=== PATIENT | male | born 1950 | race Caucasian/White ===

== ENCOUNTER 2023-04-18 11:42 | Observation (INO) ==
[~2023-04-18 11:42] MED LIST: Buffered Lidocaine 1% SYRIN 1 ml INTRADERM ONE; Lactated Ringers 1000 ml BAG 1,000 ML IV SCH; Naloxone 0.4 mg VIAL 0.4 mg/ml 1 ml VIAL IV PRN; Ondansetron 4 mg VIAL 2 MG/ML 2 ml VIAL IV PRN; fentaNYL 100 mcg/2 ml 50 MCG/ML VIAL IV PRN; oxyCODONE/Acetamin 5/325 mg TAB PO PRN
[2023-04-18] MEDS ORDERED: ceFAZolin 2 GM PREMIX 2 GM/50 ML BAG ONE (12:09)
[2023-04-18] MEDS ORDERED: Buffered Lidocaine 1% SYRIN 1 ml ONE (12:09)
[2023-04-18 12:36] LABS: Rapid COVID-19 Molecular Undetected (Undetected)
[2023-04-18] MEDS ORDERED: Midazolam 2 mg/2 ml VIAL 1 mg/ml 2 ml VIAL (2 mg) ONE ×2 (12:50→19:19)
[2023-04-18] MEDS ORDERED: Lidocaine 2% PF 5 ML VIAL ONE (12:50)
[2023-04-18] MEDS ORDERED: fentaNYL 100 mcg/2 ml 50 MCG/ML VIAL ONE ×2 (12:50→19:17)
[2023-04-18] MEDS ORDERED: Ondansetron 4 mg VIAL 2 MG/ML 2 ml VIAL ONE (12:51)
[2023-04-18] MEDS ORDERED: Morphine 2 MG/ML SYRINGE IV PRN (16:26)
[2023-04-18] MEDS ORDERED: Magnesium Hydroxide LIQ 30 ML UDC PO PRN (16:26)
[2023-04-18] MEDS ORDERED: Ondansetron ODT 4 mg TAB 4 MG TAB PO PRN (16:26)
[2023-04-18] MEDS ORDERED: Lactulose 30 ml UDC PO PRN (16:26)
[2023-04-18] MEDS ORDERED: Ondansetron 4 mg VIAL 2 MG/ML 2 ml VIAL IV PRN (16:26)
[2023-04-18] MEDS ORDERED: Lactated Ringers 1000 ml BAG 1,000 ML IV SCH (17:00)
[2023-04-18] MEDS ORDERED: Acetaminophen IV 1 GM/100ML 1,000 MG/100 ML BAG IV ONE (17:18)
[2023-04-18] MEDS ORDERED: Dexamethasone IV 4 MG/ML VIAL 1 ml VIAL ONE (18:01)
[2023-04-18] MEDS ORDERED: Propofol 10 MG/ML 20 ML BTL ONE ×2 (18:01→18:46)
[2023-04-18] MEDS ORDERED: Glycopyrrolate IV 0.2 MG/ML 1 ML VIAL ONE (18:01)
[2023-04-18] MEDS ORDERED: oxyCODONE/Acetamin 5/325 mg TAB ONE (19:50)
[2023-04-18] MEDS: Magnesium Hydroxide LIQ 30 ML UDC PO SCH (21:54)
[2023-04-18] MEDS: Polyethylene Glycol 3350 17 GM PACKET PO SCH (23:30)
[2023-04-18 23:35] LABS: ABS Basophils 0.1 10^3/uL (0.0-0.1); ABS Lymphocytes 0.5 10^3/uL (1.0-4.8); ABS Monocytes 0.3 10^3/uL (0.0-1.1); ABS Neutrophils 12.6 10^3/uL (1.5-7.6); ABS Nucleated RBC 0.01 10^3/ul; Hematocrit 40.4 % (38-53); Hemoglobin 14.1 g/dL (13.2-16.3); Lymphocyte % 3.7 %; Mean Corpuscular Hemoglobin 33.8 pg (27-33); Mean Corpuscular Hgb Conc 34.9 g/dL (31-36); Mean Corpuscular Volume 96.9 fL (80-97); Nucleated Red Blood Cells % 0.1 /100 WBC (0.0-0.4); Platelet Count 196 10^3/uL (150-450); Red Blood Count 4.17 10^6/uL (4.06-5.63); Red Cell Distribution Width 12.8 % (12-17); White Blood Count 13.4 10^3/uL (3.6-10.2)
[2023-04-19] MEDS: ceFAZolin 1 GM ADVAN 1 GM in NS 0.9% 50 ML 50 ML IVPB SCH ×3 (00:54→15:47)
[2023-04-19] MEDS ORDERED: Lactulose 30 ml UDC PO PRN (03:35)
[2023-04-19 06:03] LABS: Hematocrit 35.9 % (38-53); Hemoglobin 12.6 g/dL (13.2-16.3); Platelet Count 178 10^3/uL (150-450)
[2023-04-19 06:20] LABS: Calcium 9.1 mg/dL (8.6-10.3); Creatinine, Serum 0.71 mg/dL (0.67-1.17); eGFR CKD-EPI 98.7 (>60)
[2023-04-19] MEDS: Magnesium Hydroxide LIQ 30 ML UDC PO SCH (08:33)
[2023-04-19] MEDS: Polyethylene Glycol 3350 17 GM PACKET PO SCH (08:54)
[2023-04-19] MEDS ORDERED: Vitamin THERAPEUTIC TAB PO SCH (09:00)
[2023-04-19] MEDS ORDERED: VIT C E ZN COPPR LUTEIN ZEAXAN PO SCH (09:00)
[2023-04-19] MEDS ORDERED: [UNRECOGNIZED DRUG - OTHER] PO SCH (09:00)
[2023-04-19 14:12] VITALS: BP 127/79
[2023-04-19] MEDS ORDERED: Cholecalciferol (VIT D3) 1,000 unit TAB PO SCH (21:00)
== END 2023-04-19 14:40 | disposition home or self-care (01) ==
LOC: SSU 11:42 → OR 11:42
PROVIDERS: ADMIT Orthopaedic Surgery Adult Reconstructive Orthopaedic Surgery; ATTEND Orthopaedic Surgery Adult Reconstructive Orthopaedic Surgery